=== PATIENT | female | born 1965 | race Two or more races ===

== ENCOUNTER 2016-12-06 15:43 | Emergency (ER) | payer OTHER ==
[2016-12-06] MEDS ORDERED: ACETAMINOPHEN 500 MG TABLET ONE (16:59)
--- NOTE | 2016-12-06 17:50 | RAD ---
12/06/2016 5:46 PM CHEST - 2 VIEWS History: Cough, fever and weakness since 12/02/2016 Comparison: None Findings: Two views of the chest are obtained. The lungs are clear with out effusion or pneumothorax. The cardiomediastinal silhouette is unremarkable.. The osseous structures are intact.. IMPRESSION: No acute intrathoracic process.
== END 2016-12-06 17:52 | disposition home or self-care (01) ==
LOC: ED 15:43
DX: J11.1 Influenza due to unidentified influenza virus with other respiratory manifestations (principal); R05 Cough; E11.9 Type 2 diabetes mellitus without complications
CPT/HCPCS: 71020; 87804; 99283 ×2; 82962; A9270